=== PATIENT | female | born 1955 | race Caucasian/White ===

== ENCOUNTER 2016-10-03 23:49 | Emergency (ER) | payer BC, OTHER ==
[2016-10-04] MEDS ORDERED: ACETAMINOPHEN 325 MG TABLET PO ONE (01:07)
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
[2016-10-04] MEDS ORDERED: IBUPROFEN 600 MG TABLET PO ONE (05:32)
[2016-10-04] MEDS ORDERED: CYCLOBENZAPRINE HCL 10 MG TABLET PO ONE (05:32)
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
[2016-10-04 06:05] VITALS: BP 122/88
== END 2016-10-04 06:02 | disposition home or self-care (01) ==
LOC: ER 23:49
DX: S09.90XA Unspecified injury of head, initial encounter (principal); R51 Headache; M79.1 Myalgia; V89.2XXA Person injured in unspecified motor-vehicle accident, traffic, initial encounter; I10 Essential (primary) hypertension; K21.9 Gastro-esophageal reflux disease without esophagitis; Z88.3 Allergy status to other anti-infective agents; Z88.2 Allergy status to sulfonamides; Z98.51 Tubal ligation status
CPT/HCPCS: 99283